=== PATIENT | male | born 1935 | race Caucasian/White ===

== ENCOUNTER 2020-03-01 12:37 | Outpatient (REF) | payer MEDICARE, SELFPAY ==
--- NOTE | 2020-03-01 | XR_ITS ---
EXAMINATION: XR RIBS, LEFT CLINICAL INFORMATION: Left-sided chest pain. Status post fall COMPARISON: None TECHNIQUE: 3 views of the left ribs were obtained. Chest one view. FINDINGS: CHEST: The lungs are expanded with extensive bilateral pleural calcified and noncalcified plaques. No acute consolidation or pleural effusion seen. Suspect small left apical pneumothorax. There are median sternotomy sutures and mediastinal denisse from previous intervention. LEFT RIBS: Multiple views left ribs reveals fracture left lateral seventh and eighth ribs with mild deformity. No additional fractures visualized. XR/XR ribs LT min 3V w CXR1V IMPRESSION: Suspect small left apical pneumothorax. There is fracture left lateral seventh and eighth ribs. Mild deformity of left lateral seventh rib. The lungs are clear of acute process. There is extensive bilateral pleural plaques.
== END 2020-03-01 12:38 | disposition home or self-care (01) ==
LOC: HO.HMGCX 12:37
PROVIDERS: PCP Family Medicine; Visit Provider Internal Medicine
DX: R07.89 Other chest pain (principal); Z91.81 History of falling
CPT/HCPCS: 71101

== ENCOUNTER 2020-03-02 08:43 | Outpatient (REF) | payer MEDICARE, SELFPAY ==
--- NOTE | 2020-03-02 | XR_ITS ---
EXAMINATION: XR CHEST CLINICAL INFORMATION: Follow-up of suspected small left apical pneumothorax. COMPARISON: March 01, 2019 and August 11, 2019 TECHNIQUE: 2 views of the chest were obtained. FINDINGS: Calcified and noncalcified pleural and hemidiaphragmatic plaques are again seen bilaterally. No acute parenchymal disease, pneumothorax, or pleural effusion is identified. Heart mildly enlarged. No evidence of pulmonary edema. Status post median sternotomy. There is degenerative change of both shoulders with glenohumeral joint spurring. XR/XR chest 2V IMPRESSION: No acute disease. No definite pneumothorax identified. Calcified and noncalcified plaques consistent with previous asbestos exposure.
== END 2020-03-02 08:44 | disposition home or self-care (01) ==
LOC: HO.HMGCX 08:43
PROVIDERS: PCP Internal Medicine; Visit Provider Internal Medicine
DX: S22.39XA Fracture of one rib, unspecified side, initial encounter for closed fracture (principal); J93.9 Pneumothorax, unspecified
CPT/HCPCS: 71046

== ENCOUNTER 2020-06-30 08:21 | Outpatient (REF) | payer MEDICARE, SELFPAY ==
--- NOTE | ~2020-06-30 | XR_ITS ---
EXAMINATION: XR CHEST CLINICAL INFORMATION: Cough. COMPARISON: Chest 03/02/2020 TECHNIQUE: 2 views of the chest were obtained. FINDINGS: The lungs are well-expanded with no acute pneumonic process. There is prominent increased interstitial markings in both lungs with mild blunting of right CP angle. There are calcified pleural and diaphragmatic plaques bilaterally. Heart size and pulmonary vascularity is normal. No gross bony abnormality seen. XR/XR chest 2V IMPRESSION: Unremarkable chest exam. Increased interstitial markings in both lungs likely chronic changes. No acute consolidation. Bilateral calcified pleural plaques are stable.
== END 2020-06-30 08:22 | disposition home or self-care (01) ==
LOC: HO.HMGCX 08:21
PROVIDERS: PCP Internal Medicine; Visit Provider Internal Medicine
DX: R05 Cough (principal)
CPT/HCPCS: 71046

== ENCOUNTER 2020-07-05 13:17 | Outpatient (REF) | payer MEDICARE, SELFPAY ==
--- NOTE | ~2020-07-05 | XR_ITS ---
EXAMINATION: XR LUMBOSACRAL SPINE CLINICAL INFORMATION: Low back pain. COMPARISON: 04/03/[address] scan of 11/26/2018. TECHNIQUE: Three views of the lumbosacral spine. FINDINGS: There is mild scoliosis of the lumbar spine convex right. No acute fractures appreciated. There is osteopenia visualized bones. There are multilevel endplate concavities seen from the lower thoracic spine through the lumbar spine with no definite acute fracture appreciated. There is disc space narrowing seen T11 through S1. There is a grade 1 spondylolisthesis at the L4-L5 level. Vacuum disc phenomena is seen at multiple levels. There is facet arthropathy present involving the right L4-L5 and L5-S1 levels. No evidence of fusion or widening of the sacroiliac joints is seen. Degenerative marginal spurring is seen throughout the lumbar spine. XR/XR lumbar spine 2-3V IMPRESSION: Diffuse osteopenia with multilevel degenerative disc disease as described. Right-sided facet arthropathy L4 through S1. Mild scoliosis. No definite acute fracture appreciated. Grade 1 spondylolisthesis L4-L5.
== END 2020-07-05 13:18 | disposition home or self-care (01) ==
LOC: HO.HMGCX 13:17
PROVIDERS: PCP Internal Medicine; Visit Provider Internal Medicine
DX: M54.5 Low back pain (principal)
CPT/HCPCS: 72100

== ENCOUNTER 2020-09-14 14:48 | Outpatient (REF) | payer MEDICARE, SELFPAY ==
--- NOTE | ~2020-09-14 | US_ITS ---
EXAMINATION: US VENOUS ULTRASOUND WITH DOPPLER LOWER EXTREMITY, LEFT CLINICAL INFORMATION: Left lower extremity pain and swelling. Assess for occult DVT. COMPARISON: Left lower extremity venous ultrasound with Doppler 05/23/2018 TECHNIQUE: Ultrasound of the deep veins is performed from the hip to the calf with compression sonography and color and pulse Doppler assessment. Spectral analysis with color-flow imaging is performed. FINDINGS: There is normal venous compression and respiratory variation and augmented flow. The visualized common femoral vein, superficial femoral vein, profunda femoral vein, popliteal vein, and the trifurcation region shows no evidence of deep venous thrombosis. There is no focal popliteal fossa cyst demonstrated. Some mild cutaneous edema present in the region of the mid to distal calf. No skin thickening. US/US venous duplex LE LT IMPRESSION: No DVT demonstrated in the left lower extremity.
== END 2020-09-14 14:49 | disposition home or self-care (01) ==
LOC: HO.HMGCX 14:48
PROVIDERS: PCP Internal Medicine; Visit Provider Internal Medicine
DX: M79.662 Pain in left lower leg (principal); M79.89 Other specified soft tissue disorders
CPT/HCPCS: 93971

== ENCOUNTER 2021-01-26 15:13 | Outpatient (REF) | payer MEDICARE, SELFPAY ==
--- NOTE | ~2021-01-26 | CT_ITS ---
EXAMINATION: CT HEAD WITHOUT CONTRAST CLINICAL INFORMATION: Confusion. Rule out subdural hematoma. COMPARISON: 10/05/2016 TECHNIQUE: Contiguous axial imaging was performed from the skull base to vertex without intravenous contrast. This CT examination was performed using dose optimization techniques as appropriate, variously including the following: * Automated exposure control * Adjustment of mA and/or kV according to patient size (this includes techniques or standardized protocols for targeted exams where dose is matched to indication/reason for exam; i.e. extremities or head) Use of iterative reconstruction technique DLP: 796 mGy-cm. FINDINGS: There is no evidence of acute intracranial hemorrhage or territorial infarction. No abnormal mass effect or midline shift is seen. Tucker to white matter differentiation is well preserved. No extra-axial fluid collections are identified. No hydrocephalus. Proportional prominence of the ventricles and sulcal spaces is consistent with mild volume loss. Patchy periventricular and deep white matter hypoattenuation is consistent with mild small vessel ischemic changes. The osseous structures and soft tissues are normal. The mastoid air cells and visualized portions of the paranasal sinuses are well aerated. CT/CT head/brain wo con IMPRESSION: No acute intracranial pathology. Mild volume loss with small vessel ischemic change. The report will be called to the ordering clinician by a [facility] Workflow Coordinator.
== END 2021-01-26 15:14 | disposition home or self-care (01) ==
LOC: HO.XRAY 15:13
PROVIDERS: PCP Family Medicine; Visit Provider Internal Medicine
DX: R41.0 Disorientation, unspecified (principal)
CPT/HCPCS: 70450

== ENCOUNTER 2021-03-14 11:02 | Outpatient (REF) | payer MEDICARE, SELFPAY ==
--- NOTE | ~2021-03-14 | XR_ITS ---
EXAMINATION: XR CHEST CLINICAL INFORMATION: Shortness of breath COMPARISON: Chest x-ray 06/30/2020 TECHNIQUE: 2 views of the chest were obtained. FINDINGS: Similar mild enlargement of the cardiac silhouette. Atherosclerotic disease of the aortic arch. Patient is status post sternotomy. The lungs are adequately aerated. Chronic diffuse coarsening of the interstitial markings bilaterally. Some pleural calcifications again noted. Similar blunting of the right costophrenic angle suggesting scarring. There is no lobar consolidation. No pleural effusion or pneumothorax. Degenerative changes of the spine and shoulders. XR/XR chest 2V IMPRESSION: Stable chronic findings of the lungs without radiographic evidence to suggest acute pulmonary process.
== END 2021-03-14 11:03 | disposition home or self-care (01) ==
LOC: HO.XRAY 11:02
PROVIDERS: PCP Internal Medicine; Referring Provider Internal Medicine; Visit Provider Internal Medicine
DX: R06.02 Shortness of breath (principal); I48.19 Other persistent atrial fibrillation; I25.10 Atherosclerotic heart disease of native coronary artery without angina pectoris
CPT/HCPCS: 71046; 93005; 99202

== ENCOUNTER → 2021-04-28 08:31 | Outpatient (REF) | payer MEDICARE, SELFPAY ==
--- NOTE | 2021-04-28 08:37 | CA_ITS ---
Transthoracic Echocardiogram Patient (Last, First, Middle): Raghu Conteh F Gender: Male Date of : 1935 Age: 86 Procedure Date: 04/28/2021 Procedure Type: Transthoracic Echocardiogram Location: OP Height: 172.72 cm Weight: 72.58 kg BSA: 1.86 m2 Heart Rate: bpm BP: 122 / 60 mmHg Shipping Manager: SANDI Referring MD: Timur Spencer MD Supervisor Customer Records Division: John Peterson MD Symptoms: I48.19 - Other persistent atrial fibrillation Study Quality: Fair ECG Rhythm: Sinus Conclusions: - 1. Normal LV systolic function with moderate LVH with grade 3 diastolic dysfunction 2. Moderate biatrial enlargement 3. Normal cardiac valvular Doppler with mitral calcification fibrocalcific aortic valve changes noted 4. Normal RV systolic pressure 5. No gross pericardial effusion Findings Left Ventricle Normal left ventricular cavity size. There is moderately increased left ventricular wall thickness. The left ventricular systolic function is normal. The visually estimated ejection fraction is between 60-65%. There is no evidence of regional wall motion abnormalities. Spectral Doppler is indicative of a restrictive filling pattern. E/E prime ratio is >15, consistent with elevated filling pressures. Evidence suggests grade III (severe) diastolic dysfunction. Right Ventricle Moderately increased right ventricular cavity size. There is normal right ventricular systolic function. Atria The left atrium is moderately dilated. There is no evidence of interatrial shunt. The right atrium is moderately dilated. Aortic Valve There is moderate calcification of the aortic valve. There is no aortic valve stenosis. There is no aortic valve regurgitation. Mitral Valve There is mild anterior and posterior mitral leaflet thickening. There is mild mitral annular calcification. There is trace mitral valve regurgitation. There is no mitral valve stenosis. Pulmonic Valve The pulmonic valve was not well visualized. Tricuspid Valve Likely normal tricuspid valve structure and function. There is mild tricuspid valve regurgitation. The right ventricular systolic pressure is normal. Normal right atrial pressure. There is no evidence of pulmonary hypertension. Great Vessels All visible segments of the aorta are normal in size. The pulmonary artery was not well visualized. Venous The inferior vena cava is normal in size and collapses greater than 50% with inspiration. Pericardium/Pleural There is no evidence of pericardial effusion. Measurements 2D Linear Measurements IVSd: 1.50 0.6-0.9/0.6-1.0 cm LVIDd: 3.20 3.9-5.3/4.2-5.9 cm LVIDd Index: 1.72 2.4-3.2/2.2-3.1 cm/m2 LVIDs: 2.02 2.0-3.6 cm LVPWd: 1.45 0.7-1.1 cm LA Diam: 4.40 2.7-3.8/3.0-4.0 cm LAIDs Index: 2.37 1.5-2.3 cm/m2 LV Mass: 256.84 67-162/88-224 g LV Mass Index: 138.08 43-95/49-115 g/m2 LVOT Diam: 2.10 3.0+(-)1.3 cm 2D Systolic Function EF 4C: 61.90 >55% EF 2C: 65.30 >55% EF BiP: 64.10 >55% Mitral Valve MV Pk E: 1.00 MV PK A: 0.31 MV Decel Time: 139.00 E/A: 3.20 E'Lateral: 5.68 E'Medial: 3.73 E/E' Med: 26.80 E/E' Lat: 17.60 PHT: 41.00 MVA PHT: 5.37 Decel Perry: 7.24 Aortic Valve AoV Pk Mickey: 1.50 AoV Mn Mickey: 1.19 AoV VTI: 0.32 AoV Pk Grad: 9.00 Aov Mn Grad: 6.00 PETRONA Cont.VTI: 2.10 LVOT LVOT Pk Mickey: 0.89 LVOT Mn Mickey: 0.64 LVOT VTI: 0.19 LVOT Pk Grad: 3.00 LVOT Mn Grad: 2.00 LVOT Diam: 2.10 LVOT Area: 3.46 Diastolic Function MV Pk E: 1.00 MV Pk A: 0.31 E/A: 3.20 E'Medial: 3.73 E/E' Med: 26.80 E' Laterial: 5.68 E/E' Lat: 17.60 Right Ventricle TAPSE (mm): 14.10 TVS' Mickey: 4.54 Tricuspid Valve TR Pk Mickey: 2.67 TR Pk Grad: 29.00 RA Press: 3.00 RVSP: 32.00 Great Vessels Aorta Sinus of Valsalva: 3.27 2.0-3.[address] Ridge: 2.22 1.7-3.4 cm Ao Asc: 3.40 2.1-3.4 cm Ao Arch: 2.90 Updated in Other Vendor System with Status of Final John Peterson MD electronically signed on 04/28/2021 2:28:44 PM with status of Final
--- NOTE | 2021-04-28 09:13 | ECG_ITS ---
Hook-up date: 2021-04-28 10:02:00 Duration: 47:59:00 Test Indications: PERSISTANT AFIB Medications: 09336 QRS complexes 57 Ventricular ectopics which represent <1 % of total QRS comp. * Supraventricular ectopics which represent % of total QRS comp. * Paced QRS complexs which represent % of total QRS comp. VENTRICULAR ECTOPY 51 Isolated 0 Bigeminal Cycles 1 Couplets 1 Runs 4 Beats in Runs 4 Beats LONGEST at 142 BPM at 00:04:15 2021-04-29 4 Beats FASTEST at 142 BPM at 00:04:15 2021-04-29 SUPRAVENTRICULAR ECTOPY * Isolated * Couplets * Runs * Beats in Runs * Beats LONGEST at * BPM at :: -- * Beats FASTEST at * BPM at :: -- HEART RATES 54 MIN at 23:41:36 2021-04-28 57 AVG 99 MAX at 10:04:31 2021-04-28 LONGEST RR 1.9040 secs at 00:33:56 2021-04-29 S-T LEVELS Channel 1 - 128 mm at 10:02:00 2021-04-28 - 128 mm at 10:02:00 2021-04-28 Channel 2 - 128 mm at 10:02:00 2021-04-28 - 128 mm at 10:02:00 2021-04-28 Channel 3 - 128 mm at 02:92:11 -- - 128 mm at 02:92:11 Basic rhythm Atrial fibrillation No significant pauses Frequent slow VR to AF with average HR of 57 bpm, 69% of time HR < 60 bpm Rare Premature ventricular complexes One 4 beat deja of NSVT at 142 bpm No diary submitted Referred By: Timur Spencer Overread By: RAISA ROSADO MD
== END ==
LOC: HO.CARD 08:31
PROVIDERS: Visit Provider Internal Medicine
DX: I48.19 Other persistent atrial fibrillation (principal)
CPT/HCPCS: 93225; 93226; 93306

== ENCOUNTER 2021-05-07 15:30 | Inpatient (IN) | payer MEDICARE, SELFPAY ==
--- NOTE | ~2021-05-07 | CT_ITS ---
EXAMINATION: CT CERVICAL SPINE WITHOUT CONTRAST CLINICAL INFORMATION: Trauma. Neck pain. COMPARISON: None TECHNIQUE: Axial 3 mm thin and reformatted 2 mm thin sagittal coronal images of cervical spine were obtained. This CT examination was performed using dose optimization techniques as appropriate, variously including the following: *Automated exposure control *Adjustment of mA and/or kV according to patient size (this includes techniques or standardized protocols for targeted exams where dose is matched to indication/reason for exam; i.e. extremities or head) *Use of iterative reconstruction technique DLP: 530 mGy-cm FINDINGS: There is normal cervical lordosis. The vertebral heights and alignment is normal. There is loss of C4-C5, C5-C6 and C6-C7 disc heights with mild ventral and posterior spondylosis. The craniovertebral junction and the C1-C2 alignment is normal. There is no visible acute fracture, dislocation or subluxation seen. The prevertebral and paravertebral soft tissues are normal. The airway is widely patent. The thyroid lobes are symmetrical and normal. No abnormal mass or lymphadenopathy seen in the neck. Visualized intracranial brain parenchyma appears normal. There is small right pleural effusion with apical posterior pleural thickening and calcification. CT/CT cervical spine wo con IMPRESSION: No acute fracture, dislocation or subluxation seen. There are degenerative disc changes C4-C5-C2 C6-C7 disc levels and facet joint arthropathy left C3-C4 right C7-T1 disc level. Fleischner guidelines were followed.
--- NOTE | ~2021-05-07 | CT_ITS ---
EXAMINATION: CT ANGIOGRAM NECK WITH CONTRAST CT ANGIOGRAM BRAIN WITH CONTRAST CLINICAL INFORMATION: Altered mental status. COMPARISON: Head CT performed earlier the same day. TECHNIQUE: Test bolus sequences followed by intravenous administration 100 mL of Omnipaque 350. Helical imaging was performed in the axial plane from the thoracic inlet to the skull vertex. The data was processed at the ep technologist workstation for generation of MIP sequences. Angled MIPs and volume rendered reformatted images were also generated at an offline 3D workstation. Stenoses are assessed in accordance with NASCET criteria unless otherwise indicated. This CT examination was performed using dose optimization techniques as appropriate, variously including the following: *Automated exposure control *Adjustment of mA and/or kV according to patient size (this includes techniques or standardized protocols for targeted exams where dose is matched to indication/reason for exam; i.e. extremities or head) *Use of iterative reconstruction technique DLP: 718 mGy-cm FINDINGS: Neck CTA: Aortic arch demonstrates atheromatous changes. The great vessels are patent. The bilateral common carotid arteries are patent. Atheromatous changes are seen at the bilateral carotid bifurcations resulting in 75% stenosis of the proximal right internal carotid artery with a tandem milder stenosis seen just distally. The cervical right ICA is patent. Atheromatous changes at the left carotid bifurcation results in less than 50% stenosis. Calcific plaque narrows the origin of the right and left vertebral arteries. The cervical vertebral artery segments are patent. Head CTA: Atheromatous changes are seen at the carotid siphons resulting in severe stenosis of the right paraclinoid segment and moderate stenosis of the left paraclinoid segment. No proximal vessel occlusion is seen. The left A1 segment is dominant. The right A1 segment is atretic. Atheromatous plaque is seen along the intradural right vertebral artery without significant stenosis. The left vertebral artery and basilar artery are patent. The hydro operator are patent. The MCAs are patent. Non-vascular findings: Brain parenchymal evaluation is limited. No mass effect or midline shift is seen. There is small right pleural effusion. Lung evaluation is limited due to motion. Changes of median sternotomy are noted. The cervical soft tissues are within normal limits. Degenerative changes are seen within the spine. CT/CT angio head neck stroke IMPRESSION: Limited exam due to motion artifact and bolus timing. Approximately 75% stenosis of the proximal right internal carotid artery related to calcific plaque. Calcific plaque narrows the origins of both vertebral arteries. Intracranially, no proximal vessel occlusion is seen. Small right pleural effusion.
--- NOTE | ~2021-05-07 | CT_ITS ---
EXAMINATION: CT HEAD WITHOUT CONTRAST (STROKE PROTOCOL) CLINICAL INFORMATION: Stroke protocol. Head injury COMPARISON: January 26, 2021 TECHNIQUE: Contiguous axial imaging was performed from the skull base to vertex without intravenous administration of contrast. This CT examination was performed using dose optimization techniques as appropriate, variously including the following: *Automated exposure control *Adjustment of mA and/or kV according to patient size (this includes techniques or standardized protocols for targeted exams where dose is matched to indication/reason for exam; i.e. extremities or head) *Use of iterative reconstruction technique DLP: 784 mGy-cm FINDINGS: There is no intracranial hemorrhage, hematoma, or extra-axial fluid collection. The ventricles are normal in size. There is no hydrocephalus, edema, or mass effect. The boucher-white matter differentiation appears symmetric. There is no acute infarct or mass lesion. There is mild stable periventricular white matter low density seen as well as stable low-density within the insular cortex consistent with microangiopathy. The calvarium appears intact. There is no pneumocephalus or orbital emphysema. The visualized sinuses and middle ears and mastoid air cells show no significant mucosal thickening. There are no air-fluid levels. Carotid and vertebral artery calcifications present. CT/CT head for stroke IMPRESSION: No acute intracranial pathology. This critical result was discussed with Dr. Santizo at 3:50 PM hours on May 07, 2021. It was ascertained that the content and urgency of the report was understood at the time of direct communication.
[2021-05-07 15:43] LABS: Prothrombin Time Whole Bld POC 21.1 sec (11.1-13.5); ~PT, ~INR - Anti Coag Clinic 1.8 (0.9-1.1)
--- NOTE | 2021-05-07 15:44 | ECG_ITS ---
Test Reason : low pulse Blood Pressure : / mmHG Vent. Rate : 030 BPM Atrial Rate : 046 BPM P-R Int : 000 ms QRS Dur : 084 ms QT Int : 734 ms P-R-T Axes : 000 204 248 degrees QTc Int : 518 ms Poor data quality Marked bradycardia likely slow afib Right superior axis deviation Pulmonary disease pattern Prolonged QT Abnormal ECG When compared with ECG of 01-AUG-2018 08:51, Bradycardia present Poor data quality in current ECG precludes serial comparison Referred By: Kiana Santizo Electronically Signed By:Juan Antonio Hall
--- NOTE | 2021-05-07 15:52 | ED_ITS ---
HPI - Altered Mental Status General Chief Complaint: Syncope Stated Complaint: fall, hit head Time Seen by Provider: 05/07/21 15:34 History of Present Illness HPI narrative: Patient is 86-year-old male fell unsure as to the reason why he fell. Hit the back of his head. Subsequently patient was very lethargic. EMS was contacted. On EMS arrival patient answers questions. Patient was noted during the ride had changes in mental status become more lethargic. Had a weak pulse. Subsequently gradually recover. Has a history of dementia. History of atrial fibrillation currently is on Eliquis. History of hypertension history of bypass surgery back in 2003. Has been under the care of Dr. Spencer. No fever no chills patient unable to give detailed answers MD complaint: altered mental status Related Data Home Medications Medication Instructions Recorded Confirmed apixaban 2.5 mg tablet (Eliquis) 2.5 mg PO BID 03/14/21 05/07/21 donepezil 10 mg tablet (Aricept) 10 mg PO BID tab 03/14/21 05/07/21 ferrous sulfate 325 mg (65 mg 325 mg PO DAILY 03/14/21 05/07/21 iron) tablet,delayed release folic acid 800 mcg tablet 0.8 mg PO DAILY 03/14/21 05/07/21 furosemide 40 mg tablet 40 mg PO DAILY 03/14/21 05/07/21 memantine 10 mg tablet (Namenda) 10 mg PO BID 03/14/21 05/07/21 rosuvastatin 5 mg tablet 5 mg PO BEDTIME 03/14/21 05/07/21 tamsulosin 0.4 mg capsule (Flomax) 0.4 mg PO DAILY 03/14/21 05/07/21 vitamin B complex 1 tab PO DAILY 03/14/21 05/07/21 Allergies Allergy/AdvReac Type Severity Reaction Status Date / Time No Known Allergies Allergy Verified 03/14/21 11:16 [No Known Allergies*] Review of Systems Review of Systems: Positive fall Positive head injury No nausea no vomiting Yes all other systems are reviewed and are negative PMFSH Past Medical History Attestation statement: The following information was validated with the patient. Medical History Atherosclerotic cardiovascular disease Persistent atrial fibrillation Surgical History History of four vessel coronary artery bypass graft (~08/12/03) Family History Family History Father Emphysema of lung Mother No problems noted. Social History Social History (Updated 03/14/21 @ 11:17 by Guerita Dneton [facility]) Patient Tobacco Use Status: Never used Tobacco Advance Directives: Yes Advance Directives Information Provided: No Advance Directives on File: No Physical Exam ED Vital Signs: Vital Signs - 24 hr 05/07/21 16:14 Pulse Rate 40 L Respiratory Rate 15 Blood Pressure 100/72 BMI result Body Mass Index 26.4 Appearance: Alert. Oriented X3. No acute distress. Eyes: Pupils equal, round and reactive to light. ENT: Pharynx normal. Neck: Normal inspection. Neck supple. No lymph nodes noted. No crepitus CVS: Normal heart rate and rhythm. Pulses normal. Normal S1 and S2 Respiratory: No respiratory distress. Breath sounds normal. No Wheezing. No rales Abdomen: Soft and nontender. No rigidity. No distention. good BS x4 Skin: Skin warm and dry. Normal skin color. Normal skin turgor. Extremities: No lower extremity edema. Neurovascular intact to all extremities. No Lacerations. No Rash Neuro: Oriented X 3. No motor deficit. No sensory deficit. Moving all extermities. No slurred speech MDM - Altered Mental Status MDM Narrative Medical decision making narrative: Patient's CT scan of the head was grossly negative for any acute evidence of bleeding. CTA was done. Patient taken back to the room. Noted to have bradycardia again. Heart rate in the 25 range. An EKG was done it showed in atrial fibrillation with a narrow complex rate 25. Case was consulted by Intensive Care Dr. Ambrosio at bedside. An ultrasound was done. It showed poor contractility. There is no pericardial effusion. At this point patient had minimal blood pressure of 80/50 after multiple doses of epi atropine. [place] at this time the pacemaker would not be useful as patient's problem is most likely a massive heart attack. Family at bedside given patient's age his wishes prior. Patient is made a comfort care only. That decision was made jointly between his his daughter and his family. Patient will be admitted to the medical service for comfort care only. Hospitalist made aware. Medical Records Attestation: I reviewed the patient's medical records. Lab Data Attestation: I reviewed the patient's lab results. Labs: Lab Results 05/07/21 Range/Units 15:38 Whole Blood PT 21.1 H (11.1-13.5) sec Whole Blood INR 1.8 H (0.9-1.1) Critical Care Time Critical Care Time Critical Care Time: Yes Total Critical Care Time: 40 Attestation: I have personally provided 40 minutes of critical care time exclusive of time spent on separately billable procedures. Time includes review of lab data, radiology results, discussion with consultants, and monitoring for potential decompensation. Interventions were performed as documented above Discharge Plan Discharge Clinical Impression: Persistent atrial fibrillation, Syncope, Bradycardia Patient Disposition: Admitted As Inpatient Prescriptions: No Action donepezil [Aricept] 10 mg tablet 10 mg PO BID 0RF memantine [Namenda] 10 mg tablet 10 mg PO BID 0RF Eliquis 2.5 mg tablet 2.5 mg PO BID 0RF ferrous sulfate 325 mg (65 mg iron) tablet,delayed release (DR/EC) 325 mg PO DAILY 0RF furosemide 40 mg tablet 40 mg PO DAILY 0RF tamsulosin [Flomax] 0.4 mg capsule 0.4 mg PO DAILY 0RF folic acid 800 mcg tablet 0.8 mg PO DAILY 0RF rosuvastatin 5 mg tablet 5 mg PO BEDTIME 0RF vitamin B complex Tablet 1 tab PO DAILY 0RF
[2021-05-07] MEDS: iohexoL 350 MG/ML 100 ML INFUS..BTL 85 ML IV (16:10)
[2021-05-07 16:14] VITALS: BP 100/72; PULSE 40; RESP 15; BMI 26.4
--- NOTE | 2021-05-07 16:15 | PC.NURSE ---
pt child monitor placed on pt in ct scan, waveform is erratic, no readable pulse. this rn and others transporting pt back to stretcher and immediately moving back to room 5. dr loja and resp tx at bedside. second iv obtained, pt placed on monitor and ekg. pt is dnr dni, family at bedside. dr loja discussing care plan options including potential for temp pacer, etl bi developer also now at bedside. provider and family discussing plan for comfort measures at this time, all questions answered at this time. otf.
[2021-05-07] MEDS: 0.9 % Sodium Chloride 500 ML 999 ML IV (16:26)
--- NOTE | 2021-05-07 17:02 | PHA.MEDREC ---
Pharmacy Consult ? Medication Reconciliation Pharmacy has completed the medication reconciliation. Med rec done with daughter Yahaira. [phone]. Thanks Rolando
--- NOTE | 2021-05-07 17:20 | P.HPHOSP_ITS ---
History of Present Illness Date of Service: 05/07/21 Chief Complaint: fall History as per ED physician and family as pt is lethargic. 86yo M with CAD s/p CABG in 2003, AF on apixaban, Alzheimer's dementia, reportedly fell and hit the back of his head. Became more lethargic during EMS transport and noted to have a weak pulse. In the ED, CT head negative for acute bleeding; CTA with 75% R internal carotid occlusion. Became bradycardic down to the 25s; EKG showed AF with narrow complexes with rate in the 20s. Candy Puller was called and a bedside echo showed very poor contractility throughout the myocardium. Of note, recent TTE 04/28/21 showed normal LVEF with grade 3 diastolic dysfunction, biatrial enlargement, mitral calcification, and fibrocalcific aortic valve. BP was 80/50 despite multiple doses of epinephrine and atropine. Pacing was discussed but in light of global hypokinesis thought to be futile per ICU and ED. Family was called in and patients was transitioned to AGRICULTURE INSPECTOR status on moprhine infusion. Admission requested for AGRICULTURE INSPECTOR care. Review of Systems Review of Systems: Yes Unobtainable due to mental condition and Unobtainable due to mental status [facility] Medical History Atherosclerotic cardiovascular disease Persistent atrial fibrillation Family History Father Emphysema of lung Mother No problems noted. Surgical History History of four vessel coronary artery bypass graft (~08/12/03) Social History Patient Tobacco Use Status: Never used Tobacco Advance Directives: Yes Advance Directives Information Provided: No Advance Directives on File: No Meds Allergies Allergy/AdvReac Type Severity Reaction Status Date / Time No Known Allergies Allergy Verified 03/14/21 11:16 [No Known Allergies*] Active Medications: Current Medications Acetaminophen (Acetaminophen Supp 650 Mg Supp.Rect) 650 mg GA Q6H PRN PRN Reason: Fever Epinephrine 5 mg/ Dextrose 255 mls @ 0 mls/hr IVCONT .Q0M [facility]; Protocol Morphine Sulfate () 100 mg in 100 mls @ 0 mls/hr IVCONT .Q0M [facility]; Protocol Morphine Sulfate () 100 mg in 100 mls @ 0 mls/hr IVCONT .Q0M [facility]; Protocol Lorazepam (Lorazepam 2 Mg/Ml Vial) 1 mg IVPUSH Q2H PRN PRN Reason: anxiety/agiation Ondansetron HCl (Ondansetron Hcl 4 Mg/2 Ml Vial) 4 mg IVPUSH Q8H PRN PRN Reason: Nausea and Vomiting Pharmacy Consult (Consult Rx Perform Med Rec) 1 each MISCELLANE ONCE PRN PRN Reason: Consult order Scopolamine (Scopolamine 1.5 Mg Patch.Td.3) 1.5 mg TRANSDERMA Q72H [facility] Sodium Chloride (0.9 % Sodium Chloride Flush 3 Ml Syringe) 3 ml IVFLUSH QSHIFT [facility] Home Medications Medication Instructions Recorded Confirmed Last Taken Type apixaban 2.5 mg tablet (Eliquis) 2.5 mg PO BID 03/14/21 05/07/21 05/07/21 History donepezil 10 mg tablet (Aricept) 10 mg PO BID tab 03/14/21 05/07/21 05/07/21 History ferrous sulfate 325 mg (65 mg 325 mg PO DAILY 03/14/21 05/07/21 05/07/21 History iron) tablet,delayed release folic acid 800 mcg tablet 0.8 mg PO DAILY 03/14/21 05/07/21 05/07/21 History furosemide 40 mg tablet 40 mg PO DAILY 03/14/21 05/07/21 05/07/21 History memantine 10 mg tablet (Namenda) 10 mg PO BID 03/14/21 05/07/21 05/07/21 History rosuvastatin 5 mg tablet 5 mg PO BEDTIME 03/14/21 05/07/21 05/06/21 History tamsulosin 0.4 mg capsule (Flomax) 0.4 mg PO DAILY 03/14/21 05/07/21 05/07/21 History vitamin B complex 1 tab PO DAILY 03/14/21 05/07/21 05/07/21 History Physical Exam Vital Signs and Narrative: Vital Signs: Last Vital Signs Pulse 40 L 05/07/21 16:14 Resp 15 05/07/21 16:14 BP 100/72 05/07/21 16:14 BMI result Body Mass Index 26.4 Gen: tachypneic, altered, moaning HEENT: sclera anicteric, moist mucus membranes Neck: supple Lungs: diminished bilaterally Heart: bradycardic, very faint pulses, PMI diffuse Abd: soft, non-tender, non-distended Ext: 2+ BLE edema Skin: cool, mottled Neuro: lethargic Psych: impaired insight Results Labs Labs: Laboratory Results - last 24 hr 05/07/21 15:38 Whole Blood PT 21.1 H Whole Blood INR 1.8 H Imaging Radiologist's Impressions: Impressions Head CT 05/07/21 15:42 IMPRESSION: No acute intracranial pathology. This critical result was discussed with Dr. Santizo at 3:50 PM hours on May 07, 2021. It was ascertained that the content and urgency of the report was understood at the time of direct communication. Head/Neck CTA 05/07/21 16:08 IMPRESSION: Limited exam due to motion artifact and bolus timing. Approximately 75% stenosis of the proximal right internal carotid artery related to calcific plaque. Calcific plaque narrows the origins of both vertebral arteries. Intracranially, no proximal vessel occlusion is seen. Small right pleural effusion. Assessment and Plan (1) Acute HFrEF (heart failure with reduced ejection fraction): Status: Acute Plan 86yo M with CAD s/p CABG and AF and Alzheimer's dementia presenting after fall and noted to be markedly bradycardic and now hypotensive with very poor myocardial contractility on bedside TTE, likely sequela of a massive GA, transitioned to AGRICULTURE INSPECTOR status given age/comorbidities/prognosis. - admit to M/S - AGRICULTURE INSPECTOR status - morphine gtt, prn lorazepam, scopolamine patch - family at bedside, adjunct physics instructor called in Quality Stroke Does the patient have a stroke diagnosis?: No VTE Prior VTE?: No VTE Risk Level:: Medical - moderate - high VTE Device Contraindication: Treatment Not Indicated VTE Drug Contraindication: Treatment Not Indicated
[2021-05-07] MEDS: LORazepam 2 MG/ML VIAL 1 MG IVPUSH (17:30)
[2021-05-07] MEDS: ondansetron HCL 4 MG/2 ML VIAL IVPUSH (17:31)
[2021-05-07] MEDS: Scopolamine 1.5 MG PATCH.TD.3 TRANSDERMA (17:31)
[2021-05-07] MEDS: Morphine Sulfate 2 MG/ML CARTRIDGE IVPUSH (18:11)
[2021-05-07] MEDS: 0.9 % Sodium Chloride Flush 3 ML SYRINGE IVFLUSH ×2 (20:37→20:45)
[2021-05-07 20:38] VITALS: RESP 18
[2021-05-07] MEDS: Morphine Sulfate/NS 100 MG/100 ML PLAST..BAG IVCONT ×3 (20:38→23:44)
[2021-05-07 21:15] VITALS: RESP 18
[2021-05-07 21:45] VITALS: RESP 20
--- NOTE | 2021-05-07 21:58 | PC.NURSE ---
Patient MOLD HOLDER pump was started @ 2029. Start and set up of MOLD HOLDER pump was witness by 2nd nurse (Zabrina). Pt is started at 2mg per hr. Patient is comfortable
[2021-05-07 23:44] VITALS: RESP 20
[2021-05-08] VITALS: RESP 20
[2021-05-08] MEDS: Morphine Sulfate/NS 100 MG/100 ML PLAST..BAG IVCONT ×2 (00:37→04:03)
--- NOTE | 2021-05-08 04:06 | PC.NURSE ---
Patient family had questions about patient's prognosis. MD was called and went to talk to the family. Pt requested a set of vitals. BP 80/49 pulse was 38 O2 was 97%. Md offered patient family alternative options of treatment. Family will consider option and reevaluate at a later time.
--- NOTE | 2021-05-08 10:50 | MHC.CDI.CONC ---
CDI Concurrent Query Documentation Clarification: PHYSICIAN'S DOCUMENTATION REQUEST Date of Query: 05/08/21 1051 Patient Name: Raghu Conteh Admit Date: 05/07/21 Dear Doctor, A review of the medical record indicates additional documentation may be needed. Please review below and update the documentation accordingly. Clinical Indicators: Risk Factors/Clinical Indicators/Treatments Change of mental status, head injury with no acute bleed. Patient transitioned to B2B OUTSIDE SALES REPRESENTATIVE per family. Patient is lethargic, moaning, tachypnea, hypotensive BP 80/49 pulse 38 O2 was 97%, RR 15/HR 40 L Poor prognosis Based on the above, could you clarify in the Progress Notes which, if any of the following, is the most likely etiology of the confusion/altered mental status? Encephalopathy - indicate type such as metabolic, toxic, hypertensive, etc. Coma or other etiology if known Acute or subacute confusional state due to (specify known or suspected etiology) Other etiology (please specify) Unable to determine Use of terms such as suspected, likely, concern for, or probable (associated with a specific diagnosis that is being evaluated, monitored, or treated as if it exists) are acceptable and can be coded in the inpatient setting, when documented at the time of discharge. Thank you, Elly Contreras [facility], CDIS Extension: [phone] Please use your independent medical judgment in providing your response. THIS QUERY IS PART OF THE PERMANENT MEDICAL RECORD Provider Response: Encephalopathy Other Diagnosis: encephalopathy due to hypoperfusion
--- NOTE | 2021-05-08 12:25 | P.PNIM_ITS ---
Subjective Subjective Date of Service: 05/08/21 Interval History: Appears comfortable on 5 mg/hr morphine gtt Review of Systems Review of Systems: Yes Unobtainable due to mental status Physical Exam Vital Signs: Vital Signs: Last Vital Signs Pulse 40 L 05/07/21 16:14 Resp 20 05/08/21 00:00 BP 100/72 05/07/21 16:14 BMI result Body Mass Index 26.4 Gen: comatose Neck: supple Lungs: no resp distress, crackles at bases Heart: bradycardic Abd: soft Ext: 1+ edema Skin: cool Neuro: comatose Objective Data Active Medications Acetaminophen (Acetaminophen Supp 650 Mg Supp.Rect) 650 mg CA Q6H PRN PRN Reason: Fever Epinephrine 5 mg/ Dextrose 255 mls @ 0 mls/hr IVCONT .Q0M [facility]; Protocol Morphine Sulfate () 100 mg in 100 mls @ 0 mls/hr IVCONT .Q0M [facility]; Protocol Last Admin: 05/08/21 04:03 Dose: 5 mg/hr, 5 mls/hr Documented by: DOV Lorazepam (Lorazepam 2 Mg/Ml Vial) 1 mg IVPUSH Q2H PRN PRN Reason: anxiety/agiation Last Admin: 05/07/21 17:30 Dose: 1 mg Documented by: RASHAD Morphine Sulfate (Morphine Sulfate 2 Mg/Ml Cartridge) 2 mg IVPUSH Q1H PRN; Protocol PRN Reason: discomfort,tachpynea Last Admin: 05/07/21 18:11 Dose: 2 mg Documented by: RASHAD Ondansetron HCl (Ondansetron Hcl 4 Mg/2 Ml Vial) 4 mg IVPUSH Q8H PRN PRN Reason: Nausea and Vomiting Last Admin: 05/07/21 17:31 Dose: 4 mg Documented by: RASHAD Pharmacy Consult (Consult Rx Perform Med Rec) 1 each MISCELLANE ONCE PRN PRN Reason: Consult order Scopolamine (Scopolamine 1.5 Mg Patch.Td.3) 1.5 mg TRANSDERMA Q72H [facility] Last Admin: 05/07/21 17:31 Dose: 1.5 mg Documented by: RASHAD Sodium Chloride (0.9 % Sodium Chloride Flush 3 Ml Syringe) 3 ml IVFLUSH QSHIFT [facility] Last Admin: 05/07/21 20:45 Dose: 3 ml Documented by: DOV Labs Labs: Laboratory Results - last 24 hr 05/07/21 15:38 Whole Blood PT 21.1 H Whole Blood INR 1.8 H Assessment and Plan (1) Acute HFrEF (heart failure with reduced ejection fraction): Status: Acute Plan 86yo M with CAD s/p CABG and AF and Alzheimer's dementia presenting after fall and noted to be markedly bradycardic and now hypotensive with very poor myocardial contractility on bedside TTE, likely sequela of a massive MD, transitioned to BENCH WORKER HELPER status given age/comorbidities/prognosis. Comatose, on morphine gtt for comfort. Updated pt's family at bedside. Quality Stroke Does the patient have a stroke diagnosis?: No VTE Prior VTE?: No VTE Risk Level:: Medical - moderate - high VTE Device Contraindication: Treatment Not Indicated VTE Drug Contraindication: Treatment Not Indicated
[2021-05-08] MEDS: LORazepam 2 MG/ML VIAL 1 MG IVPUSH (12:43)
--- NOTE | 2021-05-08 14:13 | MHC.CM.PN ---
nurse leather case finisher note electronic medcial record reviewed and case discussed with hospitals[facility] and met with patients and son and grandchildren , patient lived independentlly at home in [place] with his ,he has dementia but was faily indepednent in his adls and mobil;ity . his informed nme that she did nto feel well and went to [facility] for a while when she heard a thus, she found her on the floor with large bumpon his head when he was on the ambunce he did no lonfger was responding and per documentation found to have a heart attack he is now delivery department supervisor , patients family reported zeenat cuellar had spirtual person come on when he was first admitted . patient has been put on exhibitor sales-ain pump discharge plan to be further determined now delivery department supervisor and on pain pump [employer] caridad kwon to his family
[2021-05-08 15:41] VITALS: RESP 16
--- NOTE | 2021-05-08 17:38 | ECG_ITS ---
Test Reason : low pulse Blood Pressure : / mmHG Vent. Rate : 027 BPM Atrial Rate : 000 BPM P-R Int : 000 ms QRS Dur : 092 ms QT Int : 650 ms P-R-T Axes : 000 209 171 degrees QTc Int : 435 ms Atrial fibrillation with slow ventricular response Right superior axis deviation Low voltage QRS Abnormal ECG When compared with ECG of 07-MAY-2021 15:56, QT has shortened Referred By: Generic ED Physician Electronically Signed By:Juan Antonio Hall
[2021-05-08] MEDS: Morphine Sulfate/NS 100 MG/100 ML PLAST..BAG 6 MG IVCONT (21:37)
[2021-05-08 23:10] VITALS: RESP 16
[2021-05-09] VITALS: RESP 16
--- NOTE | 2021-05-09 02:34 | PM.EVENT ---
Event Note Date of Service: 05/09/21 Event Note: pt pronounced at 1:48 am . pulse, pupils and heart sound/lung sound were absent, pupils dilated and non-reactive
--- NOTE | 2021-05-09 09:32 | MHC.CM.PN ---
nurse case management assistant note on arrival to the floor found out this patient had at 1:48 am with his and some family present withhim
--- NOTE | 2021-05-09 13:35 | P.DN_ITS ---
Discharge Sum: Prov Provider Primary care physician: Grey Guaman MD Admitting clinician: Cisco Pantoja Attending physician on admission: Cisoc Pantoja Pronouncing clinician: Manny Gomez Discharge Sum: Diag PCOD Cause of : Acute heart failure Contributing Factors (1) Acute HFrEF (heart failure with reduced ejection fraction): (2) Atherosclerotic cardiovascular disease: (3) Persistent atrial fibrillation: Discharge Sum: Summary Date and Time Date of admission: 05/07/21 17:17 Date of : 05/09/21 Time of : 01:48 Summary Details: 86 year-old male with coronary artery disease, s/p CABG; persistent AF; and Alzheimer's dementia. He presented to the ED after falling on his head. No intracranial hemorrhage on CTH but in the ED, he became markedly bradycardic and hypotensive. ICU was consulted and bedside echocardiogram showed poor myocardial contractility likely due to massive VT. Given his disability, age, and comorbidites pointing to extremely poor prognosis, he was transitioned to PLASTIC CNC MACHINE OPERATOR status and placed on IV morphine for comfort after discussion with his family. He was pronounced at 01:48 on 05/09/[address] Gomez. Additional Data Confirmation of as documented by pronouncing clinician: no pulse, no respirations, no heart sounds and pupils fixed and dilated Attending physician: Cisco Pantoja MD
== END 2021-05-09 02:00 | disposition expired | DRG 951 ==
LOC: HO.ED 17:12 → HO.EDOVER 17:23 → HO.S3 17:51
PROVIDERS: Admitting Provider Family Medicine; Emergency Provider Emergency Medicine Emergency Medical Services; PCP Internal Medicine; Visit Provider Family Medicine
DX: Z51.5 Encounter for palliative care (principal); I50.21 Acute systolic (congestive) heart failure; I48.19 Other persistent atrial fibrillation; G93.49 Other encephalopathy; G30.9 Alzheimer's disease, unspecified; I95.9 Hypotension, unspecified; F02.80 Dementia in other diseases classified elsewhere, unspecified severity, without behavioral disturbance, psychotic disturbance, mood disturbance, and anxiety; I25.10 Atherosclerotic heart disease of native coronary artery without angina pectoris; Z95.1 Presence of aortocoronary bypass graft; Z79.01 Long term (current) use of anticoagulants; Z79.899 Other long term (current) drug therapy
CPT/HCPCS: 70450; 70496; 70498; 72125; 85610; 93005; 99285; J0171; J2060; J2270; J2405; Q9967